=== PATIENT | male | born 1950 | race Caucasian/White ===

== ENCOUNTER → 2017-05-26 | Outpatient (CLI) | payer OTHER, MEDICARE | LOC: FIMAGING 08:21 | PROVIDERS: ATTEND Orthopaedic Surgery | DX: M16.11 Unilateral primary osteoarthritis, right hip (principal) ==

== ENCOUNTER 2017-06-18 11:03 | Inpatient (IN) | payer OTHER, MEDICARE ==
[~2017-06-18 11:03] MED LIST: ROPIVACAINE 0.2% 80 MG, EPINEPHrine 0.2 MG, KETOROLAC TROMETHAMINE 30 MG in BAG 0 ML IU ONE; TRANEXAMIC ACID 3,000 MG in NS 50 ML IRR ONE; TRANEXAMIC ACID 3,000 MG/50 ML BAG IRR ONE
[2017-06-18] MEDS ORDERED: DEXAMETHASONE 4 MG/ML VIAL IVP ONE (11:17)
[2017-06-18] MEDS ORDERED: ceFAZolin 2 GM/DEXTROSE 100 ML IV ONE (11:17)
[2017-06-18] MEDS ORDERED: FAMOTIDINE 20 MG TAB PO ONE (11:17)
[2017-06-18] MEDS ORDERED: ACETAMINOPHEN 325 MG TAB PO ONE (11:17)
[2017-06-18] MEDS ORDERED: LR 1,000 ML IV ONE (11:19)
--- NOTE | 2017-06-18 11:40 | PDHPUP ---
History & Physical Update H&P update statement: This history and physical update is based on an assessment of the patient which was completed after admission or registration (within 24 hours), but prior to the surgery/procedure. H&P update: H&P reviewed & patient examined, no change in patient's condition since H&P completed
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
[2017-06-18] MEDS ORDERED: PROPOFOL/EMULSION 500 MG/50 ML BOTTLE IV ONE ×2 (13:25→13:55)
[2017-06-18] MEDS ORDERED: LIDOCAINE 2% JELLY 5 ML TUBE ONE (13:43)
[2017-06-18] MEDS ORDERED: epHEDrine SULFATE 10 MG/ML SYR ONE (14:01)
--- NOTE | 2017-06-18 15:18 | POSTOPPROG ---
Post Op Note Date of Operation: 06/18/17 Surgeon: Hoa Geronimo Wedding Cake Designer: LAWRENCE hubbard Anesthesiologist: lam Anesthesia: IV Sedation, Spinal Pre-op Diagnosis: R hip OA Post-op Diagnosis: R hip OA Indication: failed conservative therapies Procedure: R MIKE, robot assist Inf/Abcess present in the surg proc area at time of surgery?: No EBL: 50-100
[2017-06-18] MEDS ORDERED: BISACODYL 10 MG SUPP PR PRN (15:19)
[2017-06-18] MEDS ORDERED: ONDANSETRON 4 MG/2 ML VIAL IVP PRN ×2 (15:19→15:24)
[2017-06-18] MEDS ORDERED: LACTULOSE 20 GM/30 ML UDCUP PO PRN (15:19)
[2017-06-18] MEDS ORDERED: oxyCODONE IR 5 MG TAB PO PRN (15:19)
[2017-06-18] MEDS ORDERED: POLYETHYLENE GLYCOL 3350 17 GM PKT PO PRN (15:19)
[2017-06-18] MEDS ORDERED: ONDANSETRON DISINTEGRATING 4 MG TAB PO PRN (15:19)
[2017-06-18] MEDS ORDERED: TEMAZEPAM 15 MG CAP PO PRN (15:19)
[2017-06-18] MEDS ORDERED: METOCLOPRAMIDE 10 MG/2 ML VIAL IVP PRN (15:19)
[2017-06-18] MEDS ORDERED: MAGNESIUM HYDROXIDE 30 ML UDCUP PO PRN (15:19)
[2017-06-18] MEDS ORDERED: DIPHENOXYLATE/ATROPINE LOMOTIL 1 TAB PO PRN (15:19)
[2017-06-18] MEDS ORDERED: PROMETHAZINE HCL 25 MG SUPPR PR PRN (15:19)
[2017-06-18] MEDS ORDERED: CYCLOBENZAPRINE 10 MG TAB PO PRN (15:19)
[2017-06-18] MEDS ORDERED: diphenhydrAMINE 25 MG CAP PO PRN (15:19)
[2017-06-18] MEDS ORDERED: PROMETHAZINE HCL 25 MG/ML INJ IVP PRN (15:19)
[2017-06-18] MEDS ORDERED: NALOXONE HCL 0.4 MG/ML INJ IVP PRN (15:24)
[2017-06-18] MEDS ORDERED: OXYCODONE/APAP 5/325 TAB PO PRN (15:24)
[2017-06-18] MEDS ORDERED: ACETAMINOPHEN 500 MG TAB PO PRN (15:24)
[2017-06-18] MEDS ORDERED: HYDROmorphONE/DILAUDID 1 MG/ML SYR IVP PRN ×2 (15:24)
[2017-06-18] MEDS ORDERED: fentaNYL 100 MCG/2 ML INJ IVP PRN ×2 (15:24)
--- NOTE | 2017-06-18 15:40 | POSTANESTH ---
Post Anesthetic Evaluation Cardiovascular Status: Normal, Stable, Similar to Pre-Op Cond Respiratory Status: Normal, Stable, Similar to Pre-op Cond. Level of Consciousness/Mental Status: Can Participate in Eval, Alert and Oriented Pain Control: Adequate, Prn Tx Ordered Nausea/Vomiting Control: Adequate, Prn Tx Ordered Complications Possibly Related to Anesthesia: None Noted
[2017-06-18] MEDS: LR 1,000 ML IV SCH (17:21)
[2017-06-18] MEDS: ACETAMINOPHEN 325 MG TAB PO SCH ×2 (18:37→23:41)
[2017-06-18] MEDS: SENNOSIDES/DOCUSATE SODIUM TAB PO SCH (20:52)
[2017-06-18] MEDS: ASPIRIN 325 MG TAB PO SCH (20:52)
[2017-06-18] MEDS: FAMOTIDINE 20 MG TAB PO SCH (20:52)
[2017-06-18] MEDS: ceFAZolin 2 GM/DEXTROSE 100 ML IV SCH (20:52)
[2017-06-19] MEDS: LR 1,000 ML IV SCH (02:03)
[2017-06-19] MEDS: ACETAMINOPHEN 325 MG TAB PO SCH ×2 (05:08→10:08)
[2017-06-19] MEDS: ceFAZolin 2 GM/DEXTROSE 100 ML IV SCH (05:09)
[2017-06-19 05:27] LABS: HEMATOCRIT 34.6 % (40.0-51.0); HEMOGLOBIN 11.9 g/dL (13.7-17.5)
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
[2017-06-19] MEDS ORDERED: PRESERVISION AREDS2 FORMULA EYE VIT 1 EACH PO SCH (09:00)
[2017-06-19] MEDS: SENNOSIDES/DOCUSATE SODIUM TAB PO SCH (10:08)
[2017-06-19] MEDS: FAMOTIDINE 20 MG TAB PO SCH (10:09)
[2017-06-19] MEDS: ASPIRIN 325 MG TAB PO SCH (10:09)
[2017-06-19 11:48] VITALS: BP 92/51; PULSE 53; RESP 14; TEMP 98.1; O2SAT 95
--- NOTE | 2017-06-20 01:10 | GDS ---
[f rep st] DISCHARGE SUMMARY ADMISSION DIAGNOSIS: Right hip osteoarthritis. DISCHARGE DIAGNOSIS: Right hip osteoarthritis. PROCEDURE: Right total hip arthroplasty, robot assisted. BRIEF DESCRIPTION OF HOSPITAL STAY: Patient was admitted for an elective joint arthroplasty. The p atient tolerated the procedure well and has passed physical therapy. The patient was given appropri ate antibiotic prophylaxis and venous thromboembolism prophylaxis. The patient's pain was well cont rolled on oral pain medication, patient was holding down food, and had urinated. Decision was made to discharge the patient. The patient was given post-operative prescriptions pre-operatively. VTE PROPHYLAXIS: Full-strength aspirin x21 days PLAN: Please follow up with Dr. Geronimo as scheduled in 3 weeks. /[id number]/MODL
--- NOTE | 2017-06-20 14:06 | GOP ---
[f rep st] OPERATIVE REPORT DATE OF OPERATION: 06/18/2017 SURGEON: Ayah Geronimo MD BED SPRING MAKER: Rashel Sanchez PA-C ANESTHESIA: Spinal. PREOPERATIVE DIAGNOSIS: Right hip osteoarthritis. POSTOPERATIVE DIAGNOSIS: Right hip osteoarthritis. PROCEDURE PERFORMED: Total hip arthroplasty with computer navigation and robotic assist. FINDINGS: ESTIMATED BLOOD LOSS: 200 mL. IMPLANTS: Accolade II size 7 at 127. The acetabular component is a 60 mm Tritanium. The liner is a Trident X3, 36 mm. The head is a Biolox Delta 36 mm + 0. INDICATIONS: The patient has progressively worsening arthritis of the hip which has failed medical management. The patient understands the treatment option including continued non-operative care and has selected surgical intervention. The patient has decided to undergo total hip arthroplasty via the direct anterior approach understanding the risks of the procedure including, but not limited to, neurovascular injury, infection, persistent pain, component wear and loosening, deep venous thrombosis, pulmonary embolism, limb length inequality (including dislocation), and intraoperative fractures. DESCRIPTION OF PROCEDURE: After proper identification of the patient including verification and marking the surgical site, the patient was brought to the operating room and placed in the supine position. All bony prominences were well padded. Anesthesia was induced without complication and intravenous prophylactic antibiotics were administered prior to skin incision. After prepping and draping in the usual sterile fashion, attention was drawn to the contralateral pelvis for attachment of the computer navigation tracker. Three percutaneous incisions were made over the iliac crest and the pelvic tracker was affixed using threaded 3.5 mm pins yielding excellent fixation. Using computer navigation the patient's leg length and topographical pelvic anatomy was registered without complication. Attention was then drawn to surgical exposure of the hip. An incision was made with a #10 Bard Christopher blade starting 3 cm lateral and 3 cm distal to the anterior superior iliac spine measuring 8 cm to 10 cm and coursing distally toward the greater trochanter. The skin and subcutaneous tissues were divided sharply down the fascia hesham. The fascia hesham was incised in line with the skin incision exposing the underlying tensor fascia hesham muscle. This muscle was bluntly elevated from the fascia and the first extracapsular Cobra retractor was placed laterally at the junction of the superior femoral neck and greater trochanter. The lateral femoral circumflex vessels were identified, cauterized and divided with the Aquamantys bipolar cautery. The deep investing fascia of the TFL was divided to allow proper mobilization of the muscle preventing damage during retraction. The reflected head of the rectus femoris muscle was elevated off the anterior hip capsule and a medial Cobra retractor was placed just proximal to the lesser trochanter. The anterior capsulotomy was made sharply from the superolateral acetabulum to the saddle junction of the superior femoral neck and greater trochanter, then coursing inferomedial towards the lesser trochanter. The retractors were then placed in the intracapsular position for femoral neck osteotomy. Corresponding to preoperative templating the osteotomy was made with the oscillating saw protecting the greater trochanter and soft tissues. The femoral head was removed from the acetabulum with a corkscrew and confirmed to be severely arthritic with exposed bone, deformity and osteophytes. Similar finding were confirmed in the acetabulum. The Arch table extension was then placed in 40 degrees external rotation. Attention was then drawn to the acetabular preparation. After placement of the anterior and posterior Cobra retractors outside the labrum and intrascapular the circumferential labrum was removed sharply. The foveal contents were then removed and hemostasis obtained with cautery. The anatomy of the acetabulum was then registered using computer navigation. The first reamer selected was sized using the removed femoral head. Reaming began with robotic assist at 40 degrees of abduction and 20 degrees of anteversion using computer navigation. Reaming ceased 0 mm less than the definitive acetabular component. The final acetabular component was inserted using the computer to achieve proper orientation yielding excellent purchase and stability in the acetabulum. The final acetabular liner was then placed and its seating confirmed. Attention was then turned to the femur. The Arch table extension was placed in extension and adduction delivering the osteotomized femoral neck into the wound. A 2-pronged femoral elevator was placed at the calcar and another at the tip of the greater trochanter. The posterolateral capsule was released with cautery allowing mobilization of the femur lateral and anterior for preparation. The external rotators were visualized and preserved. A curette and rongeur were used to open the starting point for broaching. Serial broaching started with the #0 broach and ended with the broach that exhibited excellent fit in the proximal femur. A change in pitch during mallet strikes was accompanied by the inability to advance the broach any further. The trial reduction was performed and fluoroscopic navigation was utilized to check limb length. Adjustments were made to equalize limb length accordingly. After the final trials were accepted they were removed and the wound was copiously lavaged. The femoral component was seated to the same depth as the final broach and the femoral head was impacted onto the clean trunnion. The hip was then reduced for the final time and once more fluoroscopic navigation used to check that limb length equality was achieved. The wound was irrigated and closed in layers, the fascia hesham with 2-0 Quill, the subcutaneous tissue with a 2-0 Quill, and the skin with Dermabond, including the small incisions for computer navigation. Sterile dressings were applied. Final sharps and sponge counts were accurate. The patient was then transferred to a hospital bed and brought to the recovery room in stable condition. /[id number]/MODL MTDD
== END 2017-06-19 15:13 | disposition home or self-care (01) | DRG 470 ==
LOC: F3N 11:03
PROVIDERS: ADMIT Orthopaedic Surgery; ATTEND Orthopaedic Surgery
PROC: 8E0YXCZ Robotic Assisted Procedure of Lower Extremity (ICD-10-PCS; principal; 2017-06-18 13:00)
PROC: 0SR904Z Replacement of Right Hip Joint with Ceramic on Polyethylene Synthetic Substitute, Open Approach (ICD-10-PCS; principal; 2017-06-18 13:00)
DX: M16.11 Unilateral primary osteoarthritis, right hip (principal); R39.15 Urgency of urination
CPT/HCPCS: 97116-GP; 97161-GP; 97165-GO; G8978-GP-CJ; G8979-GP-CI; G8980-GP-CI; G8987-GO-CI; G8988-GO-CI; G8989-GO-CI; J0171; J0690; J1100; J1885; J2704; J2795

== ENCOUNTER → 2018-10-15 | Outpatient (CLI) | payer OTHER, MEDICARE | LOC: FIMAGING 09:06 | PROVIDERS: ATTEND Orthopaedic Surgery | DX: M25.551 Pain in right hip (principal); M96.89 Other intraoperative and postprocedural complications and disorders of the musculoskeletal system; Z96.641 Presence of right artificial hip joint ==

== ENCOUNTER 2018-11-09 11:04 | Observation (INO) | payer OTHER, MEDICARE ==
[2018-11-09 12:00] LABS: PLATELET COUNT 159 10^3/uL (150-400)
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
[2018-11-09 12:21] LABS: INR 1.02 (0.83-1.16); PROTIME(PATIENT) 13.6 SEC (12.0-15.0)
[2018-11-09] MEDS ORDERED: IOPAMIDOL (ISOVUE 370) 100 ML BTL IV ONE (12:32)
[2018-11-09] MEDS ORDERED: ZOLPIDEM TARTRATE 5 MG TAB PO PRN (14:25)
[2018-11-09] MEDS ORDERED: ONDANSETRON 4 MG/2 ML VIAL IVP PRN (14:25)
[2018-11-09] MEDS ORDERED: ACETAMINOPHEN 325 MG TAB PO PRN (14:25)
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
--- NOTE | 2018-11-09 15:28 | CPEKG ---
Test Reason : OPEN Blood Pressure : / mmHG Vent. Rate : 041 BPM Atrial Rate : 041 BPM P-R Int : 193 ms QRS Dur : 088 ms QT Int : 467 ms P-R-T Axes : 053 047 038 degrees QTc Int : 386 ms Sinus bradycardia Confirmed by Isabelle Castellanos ([id number]) on 11/09/2018 3:28:07 PM Referred By: Confirmed By:Isabelle Castellanos
--- NOTE | 2018-11-09 17:00 | ECHO ---
[email or web address] [address] [address] Main: [phone] Fax: Transthoracic Echocardiogram Name: MP ODEN MR#: [id number] Study Date: 11/09/2018 Study Time: 03:54 PM Date of : 1950 Age: 67 year(s) Height: 195.6 cm (77 in.) Weight: 90.72 kg (200 lb.) BSA: 2.24 m2 Gender: Male Examination: Echo Indication: Bradycardia Image Quality: Contrast: Requested by: Ricardo Pham BP: 107 mmHg/60 mmHg Heart Rate: Rhythm: Sinus bradycardia Indication: Bradycardia Procedure Staff Upper Stitcher: Nile Zamora RDCS Reading Physician: Petra Tyson MD Requesting Provider: Conclusions: Normal size left ventricle. No LV hypertrophy. Normal global systolic LV function. The ejection fraction is visually estimated to be 55 %. No regional wall motion abnormality. Normal size right ventricle. Normal RV function. No significant valvular disease. No previous echo. Measurements: Chambers Valvular Assessment AV/MV Valvular Assessment TV/PV Normal Normal Normal Name Value Range Name Value Range Name Value Range IVSd (2D): 0.8 cm (0.6 cm-1.1 AV Vmax: 1.06 m/s (1 m/s-1.7 PV Vmax: 0.81 m/s (0.6 m/s-0.9 cm) m/s) m/s) LVDd (2D): 5.3 cm (4.2 cm-5.9 AV maxP mmHg ( - ) PV PGmax: 3 mmHg ( - ) cm) LVOT Vmax: 0.88 m/s (0.7 m/s-1.1 LVDs (2D): 3.2 cm (2.1 cm-4 m/s) cm) MV E Vmax: 0.49 m/s ( - ) LVPWd (2D): 0.9 cm (0.6 cm-1 MV A Vmax: 0.63 m/s ( - ) cm) MV E/A: 0.78 ( - ) Visual EF: 55 % Continued Measurements: Chambers Valvular Assessment AV/MV Name Value Name Value LADs Lon.7 cm MV E' Septal: 0.08 m/s LA Area: 20.1 cm2 MV E/E' Septal: 5.80 Patient: MP ODEN Study Date: 11/09/2018 Page 1 of 2 03:54 PM LA Volume: 64 ml MV E/E' Lateral: 5.10 LA Volume Index: 28.6 ml/m2 Findings: Left Ventricle: Normal size left ventricle. No LV hypertrophy. Normal global systolic LV function. The ejection fraction is visually estimated to be 55 %. No regional wall motion abnormality. Normal diastolic LV function. Right Ventricle: Normal size right ventricle. Normal RV function. Left Atrium: The left atrium is normal in size. Right Atrium: The right atrium is normal in size. Mitral Valve: The mitral valve is normal in appearance and function. There is no mitral valve regurgitation. Aortic Valve: The aortic valve is tri-leaflet. The aortic valve is normal in appearance and function. There is no aortic valve regurgitation. No aortic valve stenosis is present. Tricuspid Valve: The tricuspid valve is normal in appearance and function. Trivial tricuspid valve regurgitation. Pulmonic Valve: The pulmonic valve is normal in appearance and function. Aorta: The aorta is normal. Pericardium: No pericardial effusion. (No Signature Object) Patient: MP ODEN Study Date: 11/09/2018 Page 2 of 2 03:54 PM [id number]
[2018-11-09] MEDS ORDERED: GADOBUTROL 10 ML VIAL IVP ONE (18:30)
[2018-11-09] MEDS ORDERED: MELATONIN 3 MG TAB PO SCH (21:00)
[2018-11-10] MEDS ORDERED: ENOXAPARIN 40 MG/0.4 ML SYR SC SCH (09:00)
[2018-11-10] MEDS ORDERED: CYANO/VITAMIN B12 100 MCG TAB PO SCH (09:00)
[2018-11-10] MEDS ORDERED: CALCIUM CARBONATE 500 MG CHEWABLE TAB PO SCH (09:00)
[2018-11-10] MEDS ORDERED: ASPIRIN 325 MG TAB PO SCH (09:00)
[2018-11-10 11:29] VITALS: BP 122/68
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
[2018-11-10] MEDS ORDERED: ATORVASTATIN CALCIUM 40 MG TAB PO SCH (14:00)
--- NOTE | 2018-11-10 16:17 | ASMTCMCOM ---
CM Note CM Note Notes: Pt came in for TIA symptoms, numbness in arm and leg, symptoms resolved. Neurology consulted. 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 No CM d/c needs identified. Pt has support for and son (works at [employer]). Date Signed: 11/10/2018 04:16 PM Electronically Signed By:DARIUS Dsouza
--- NOTE | 2018-11-11 06:40 | GDS ---
DISCHARGE DIAGNOSES: 1. Transient ischemic attack. 2. Cavernous angioma. 3. Hyperlipidemia. HISTORY: Skip is a 67-year-old male, who developed acute left leg numbness. He had a similar episod e a few weeks ago. He was already taking an aspirin a day. He presented to the hospital for workup and rule out stroke. His MRI was negative, more consistent with a TIA. CT angiogram of the head and neck, as well as echocardiogram, were unremarkable. He was seen in consultation with Neurology. brina recommended changing his aspirin to a daily Plavix. We will also add a statin drug for his LDL of 121. Neurology recommends cardiology followup for 30-day event monitor, perhaps implanted cardiac m onitor, to screen for paroxysmal AFib. He should also see Dr. Fabio Moraes of neurosurgery as an outpa tient for incidental finding of right parietal cavernous malformation. DISCHARGE MEDICATIONS: 1. Please see computer record for full detailed list. 2. New medications: a. Plavix 75 mg p.o. daily. b. Lipitor 40 mg p.o. daily. He will discontinue his aspirin. ADDITIONAL DISCHARGE INSTRUCTIONS: 1. Outpatient cardiology consultation for 30-day event monitor. 2. Outpatient consultation with Dr. Moraes of neurosurgery for cavernous angioma of the brain. 3. Follow up with Dr. Albarado of neurology once the cardiac workup is complete. Patient was seen and examined by me on the day of discharge. /[id number]/MODL
[2018-11-11] MEDS ORDERED: CLOPIDOGREL BISULFATE 75 MG TAB PO SCH (09:00)
== END 2018-11-10 14:52 | disposition home or self-care (01) ==
LOC: F3N 15:43
PROVIDERS: ADMIT Internal Medicine; ATTEND Internal Medicine
DX: G45.9 Transient cerebral ischemic attack, unspecified (principal); D18.02 Hemangioma of intracranial structures; R00.1 Bradycardia, unspecified; E78.5 Hyperlipidemia, unspecified; M48.061 Spinal stenosis, lumbar region without neurogenic claudication; Z96.641 Presence of right artificial hip joint; Z87.820 Personal history of traumatic brain injury; Z87.81 Personal history of (healed) traumatic fracture
CPT/HCPCS: 70450; 70496; 70498; 70553; 92523; 93005; 93306; 99285; A9585; G0378; J1650; Q9967; 84484-ER

== ENCOUNTER → 2018-11-30 | Outpatient (CLI) | payer OTHER, MEDICARE ==
[~2018-11-30] MED LIST changes: +BUPIVACAINE 0.25% 30 ML SDV ONE; +DEPO METHYLPREDNISOLONE 40 MG/ML SDV ONE; +LIDOCAINE 1% 300 MG/30 ML SDV ONE; -ROPIVACAINE 0.2% 80 MG, EPINEPHrine 0.2 MG, KETOROLAC TROMETHAMINE 30 MG in BAG 0 ML IU ONE; -TRANEXAMIC ACID 3,000 MG in NS 50 ML IRR ONE; -TRANEXAMIC ACID 3,000 MG/50 ML BAG IRR ONE
== END ==
LOC: FIMAGING 07:36
PROVIDERS: ATTEND Orthopaedic Surgery
DX: M71.22 Synovial cyst of popliteal space [Baker], left knee (principal)
CPT/HCPCS: 20550; 76942; J1030

== ENCOUNTER → 2018-12-20 | Outpatient (CLI) | payer OTHER, MEDICARE | LOC: FIMAGING 12:02 | PROVIDERS: ATTEND Orthopaedic Surgery | DX: S32.45 Transverse fracture of acetabulum (principal); M51.37 Other intervertebral disc degeneration, lumbosacral region; Z87.81 Personal history of (healed) traumatic fracture; Z96.641 Presence of right artificial hip joint ==

== ENCOUNTER 2019-01-11 13:36 | Day surgery (SDC) | payer OTHER, MEDICARE ==
[2019-01-11] MEDS ORDERED: LIDOCAINE 1% 300 MG/30 ML SDV SC ONE (13:39)
--- NOTE | 2019-01-11 14:32 | SUROPNOTE ---
[facility] Operative Report - Surgery PROCEDURE: Medtronic Reveal LINQ loop recorder implantation. DATE OF PROCEDURE: 01/11/2019 DEVICE: Medtronic Reveal LINQ, serial #[id number] COMPLICATIONS: None RADIO PERSONALITY: Bennie Raygoza MD INDICATION AND APPROPRIATE USE CRITERIA: VT/Atrial Fibrillation PROCEDURE IN DETAIL: After informed consent was obtained and n.p.o. status was confirmed, the patient was cleaned, prepped and draped in a sterile fashion. ~ 10 mL of 1% Lidocaine solution was used as local anesthetic in the left parasternal area and the skin was sharply incised with a #15 blade. Pressure was used for local homeostasis. The provided blunt dissection equipment was used to form a small tunnel underneath the skin oriented at a positive 60 degrees from a horizontal orientation. The LINQ IQ was then implanted successfully. The skin was closed with interrupted lynette and local pressure was held to obtain hemostasis. The patient tolerated the procedure without difficulties. FINAL IMPRESSION: Successful loop recorder insertion without immediate complication. Follow up in my office in 1 week for a wound check.
== END 2019-01-11 15:00 | disposition home or self-care (01) ==
LOC: FCATH 13:36
PROVIDERS: ATTEND Internal Medicine Cardiovascular Disease
PROC: 0JH602Z Insertion of Monitoring Device into Chest Subcutaneous Tissue and Fascia, Open Approach (ICD-10-PCS; principal; 2019-01-11)
DX: I47.1 Supraventricular tachycardia (principal); I48.91 Unspecified atrial fibrillation
CPT/HCPCS: C1764

== ENCOUNTER → 2019-04-05 | Outpatient (CLI) | payer OTHER, MEDICARE | LOC: FIMAGING 08:42 ==